=== PATIENT | female | born 1980 | race Two or more races ===

== ENCOUNTER 2017-11-05 13:50 | Inpatient (IN) | payer OTHER ==
[2017-11-05 15:08] VITALS: BMI 36.0
[2017-11-05 15:10] LABS: BASO % 0.4 % (0-2.0); EOS % 0.8 % (0-4.5); HEMATOCRIT 36.1 % (32.4-45.2); HEMOGLOBIN 12.8 GM/dL (10.7-15.3); LYMPH % 12.9 % (8-40); MCHC 35.4 g/dl (32.0-36.0); MEAN PLT VOLUME 8.6 fl (7.5-11.1); MONO % 5.4 % (3.8-10.2); NEUT % 80.5 % (42.8-82.8); PLATELET COUNT 188 K/MM3 (134-434); RBC 3.88 M/mm3 (3.60-5.2); RDW 13.5 % (11.6-15.6); WHITE BLOOD COUNT 8.9 K/mm3 (4.0-10.0)
[2017-11-05] MEDS ORDERED: TUBERCULIN PPD 5 TU/0.1ML SYRINGE (IN PATIENT USE ONLY) ID ONE (15:12)
[2017-11-05 15:34] LABS: INR 1.02 (0.82-1.09); PROTHROMBIN TIME (PATIENT) 11.5 SEC (9.98-11.88)
[2017-11-05 15:37] LABS: ACTIVATED PTT 23.4 SECONDS (26.9-34.4)
[2017-11-05 15:38] LABS: ANION GAP 9 (8-16); BLOOD UREA NITROGEN 8 mg/dL (7-18); CALCIUM 8.8 mg/dL (8.5-10.1); CHLORIDE 108 mmol/L (98-107); CO2 22 mmol/L (21-32); CREATININE 0.5 mg/dL (0.55-1.02); GLUCOSE,RANDOM 79 mg/dL (74-106); POTASSIUM 3.9 mmol/L (3.5-5.1); SODIUM 139 mmol/L (136-145)
[2017-11-05] MEDS ORDERED: DINOPROSTONE 10 MG VAGINAL SUPPOSITORY VG ONE (15:44)
[2017-11-05] MEDS ORDERED: BUTORPHANOL TARTRATE 1 MG/ML VIAL IVPUSH ONE (15:44)
[2017-11-05] MEDS ORDERED: PROMETHAZINE HCL 25 MG/1 ML VIAL IVPUSH ONE (15:44)
--- NOTE | 2017-11-05 16:03 | PN ---
Progress Note (short form) - Note Progress Note: cx 1 cm ,non effaced vx -3 ,fhr cat 1, no contraction , cervidil inserted
[2017-11-05] MEDS: DEXTROSE 5%-LACTATED RINGERS 1,000 ML IV SCH ×3 (16:50→23:43)
--- NOTE | 2017-11-05 17:43 | HP ---
Past Medical History - Primary Care Physician PCP:: Naman Clinton - Admission Chief Complaint: 39,4 weeks, ama, SGA, oligo History of Present Illness: 37 yo f g 4 p030 edc by sono 11/06 refereed for induction of labor due to oligo, SGA, , grade 3 placenta, cx 1 cm, non effaced vx -3. fhr cat 1, no contraction , risks of cervidil discussed with patient, ulternatives explained History Source: Patient Limitations to Obtaining History: No Limitations - Past Medical History ...: 4 ...Para: 0 ...Term: 0 ...: 0 ...Spon : 2 ...Induced : 1 ...Multiple Gestation: 0 ...LMP: 02/01/17 ... Weeks Gestation by Dates: 39.4 ...EDC by Dates: 11/08/17 ...EDC by Sono: 11/06/17 - Past Surgical History Hx Myomectomy: No Hx Transabdominal Cerclage: No - Smoking History Smoking history: Never smoked Have you smoked in the past 12 months: No - Alcohol/Substance Use Hx Alcohol Use: No - Social History Usual Living Arrangement: Yes: With Spouse History of Recent Travel: No Home Medications - Allergies Allergies/Adverse Reactions: Allergies Allergy/AdvReac Type Severity Reaction Status Date / Time cefuroxime [From Ceftin] Allergy Severe Swelling Verified 11/05/17 15:10 - Home Medications Home Medications: Ambulatory Orders Tablet 1 tab PO DAILY MDD 1 11/05/17 Review of Systems - Review of Systems Constitutional: reports: No Symptoms Eyes: reports: No Symptoms HENT: reports: No Symptoms Neck: reports: No Symptoms Cardiovascular: reports: No Symptoms Respiratory: reports: No Symptoms Gastrointestinal: reports: No Symptoms Genitourinary: reports: No Symptoms Breasts: reports: No Symptoms Reported Musculoskeletal: reports: No Symptoms Integumentary: reports: No Symptoms Neurological: reports: No Symptoms Endocrine: reports: No Symptoms Hematology/Lymphatic: reports: No Symptoms Psychiatric: reports: No Symptoms Physical Exam - Maternity Vital Signs: Vital Signs Temperature 98.6 F 11/05/17 17:00 Pulse Rate 76 11/05/17 17:00 Respiratory Rate 18 11/05/17 17:00 Blood Pressure 122/64 11/05/17 17:00 O2 Sat by Pulse Oximetry (%) Constitutional: Yes: Well Nourished, No Distress, Calm Eyes: Yes: WNL, Conjunctiva Clear, EOM Intact HENT: Yes: WNL, Atraumatic, Normocephalic Neck: Yes: WNL, Supple, Trachea Midline Cardiovascular: Yes: WNL, Regular Rate and Rhythm Breast(s): Yes: WNL - Abdominal Exam/OB Fundal Height: 38 Number of Fetuses: Single Presentation: Vertex Contractions: No Intensity: Unaware Monitor Mode: External Heart Rate Location: [facility] Category: I Accelerations: Uniform Decelerations: None - Vaginal Exam/OB Vaginal Bleediing: No Speculum Exam: No Dilatation (cm): 1 Effacement (%): 0 Amniotic Membrane Status: Intact Presentation: Vertex/Position Station: -3 - Physical Exam Musculoskeletal: Yes: WNL Extremities: Yes: WNL Edema: Yes Edema: LLE: Trace, RLE: Trace Deep Tendon Reflex Grade: Normal +2 ...Motor Strength: WNL Psychiatric: Yes: WNL - Labs Lab Results: CBC, BMP 11/05/17 14:49 11/05/17 14:49 Hemorrhage Risk Assessment - Risk Factors Medium Risk Factors: Yes: None High Risk Factors: Yes: None Risk Score: 1 Risk Level: Medium Risk Problem List - Problems (1) with 39 completed weeks gestation Code(s): Z3A.39 - 39 WEEKS GESTATION OF (2) Small for gestational age fetus Code(s): [id number] - (3) Oligohydramnios antepartum Code(s): O41.00X0 - OLIGOHYDRAMNIOS, UNSP TRIMESTER, NOT APPLICABLE OR UNSP Qualifiers: Fetus number: single or unspecified fetus Qualified Code(s): O41.00X0 - Oligohydramnios, unspecified trimester, not applicable or unspecified Assessment/Plan plan admit for cervidil induction, rba discussed , heart monitoring
[2017-11-06] MEDS ORDERED: LIDOCAINE HCL 1% PRESERVATIVE FREE - 30ML VIAL ONE (01:35)
[2017-11-06] MEDS ORDERED: OXYTOCIN 20 UNITS in 0.9% NS 20 UNIT/1,000 ML INFUS.BAG IV ONE (01:35)
[2017-11-06] MEDS ORDERED: BENZOCAINE 28 GM HEMORRHOIDAL OINTMENT TP PRN (02:10)
[2017-11-06] MEDS ORDERED: BISACODYL 10 MG SUPP.RECT RC PRN (02:10)
[2017-11-06] MEDS ORDERED: METHYLERGONOVINE MALEATE 0.2 MG/1 ML AMP IM PRN (02:10)
[2017-11-06] MEDS ORDERED: ACETAMINOPHEN 325 MG TABLET (FP) PO PRN (02:10)
[2017-11-06] MEDS ORDERED: IBUPROFEN 600 MG TABLET (FP) PO PRN (02:10)
[2017-11-06] MEDS ORDERED: oxyCODONE HCL 5 MG TABLET PO PRN (02:10)
[2017-11-06] MEDS ORDERED: WITCH HAZEL 50% (TUCKS) 40 PAD/JAR PAD TP PRN (02:10)
[2017-11-06] MEDS ORDERED: BENZOCAINE 20% 57 GM BOTTLE TP PRN (02:10)
[2017-11-06] MEDS ORDERED: OXYTOCIN 20 UNITS in 0.9% NS 20 UNIT/1,000 ML INFUS.BAG IV SCH (02:30)
[2017-11-06] MEDS: PRENATAL VITAMINS W/ FOLIC ACID TABLET (FP) PO SCH (10:05)
[2017-11-06] MEDS: FERROUS SO4 325 MG TABLET (FP) PO SCH ×2 (10:05→22:12)
[2017-11-07 08:30] LABS: BASO % 0.6 % (0-2.0); EOS % 1.3 % (0-4.5); HEMATOCRIT 33.3 % (32.4-45.2); HEMOGLOBIN 11.4 GM/dL (10.7-15.3); LYMPH % 22.4 % (8-40); MCH 32.2 pg (25.7-33.7); MCHC 34.3 g/dl (32.0-36.0); MEAN CELL VOLUME 93.8 fl (80-96); MEAN PLT VOLUME 8.3 fl (7.5-11.1); MONO % 6.1 % (3.8-10.2); NEUT % 69.6 % (42.8-82.8); PLATELET COUNT 195 K/MM3 (134-434); RBC 3.55 M/mm3 (3.60-5.2); RDW 13.7 % (11.6-15.6)
[2017-11-07] MEDS: PRENATAL VITAMINS W/ FOLIC ACID TABLET (FP) PO SCH (09:59)
[2017-11-07] MEDS: FERROUS SO4 325 MG TABLET (FP) PO SCH ×2 (09:59→21:25)
--- NOTE | 2017-11-07 12:28 | PN ---
Progress Note (short form) - Note Progress Note: ppd 1 doing well, no c/o ,voids ok, no excess vaginal bleeding CBC, BMP 11/07/17 07:45 11/05/17 14:49 Last Vital Signs Temp Pulse Resp BP Pulse Ox 99.0 F 88 20 137/74 11/07/17 10:00 11/07/17 10:00 11/07/17 10:00 11/07/17 10:00 abdomen soft, uterus firm, non tender lochia mild no calf tenderness plan ambulate , d/c home in am
[2017-11-07] MEDS ORDERED: SENNOSIDES/DOCUSATE COMBO (SENNA PLUS) TABLET (UD) PO PRN (22:00)
[2017-11-07 22:18] VITALS: TEMP 98.4
[2017-11-08 08:07] VITALS: BP 127/89; PULSE 82
--- NOTE | 2017-11-08 08:55 | DS ---
Physical Exam-CROZE CUTTER Vital Signs: Vital Signs Temperature 98.4 F 11/08/17 07:30 Pulse Rate 82 11/08/17 07:30 Respiratory Rate 20 11/08/17 07:30 Blood Pressure 127/89 11/08/17 07:30 O2 Sat by Pulse Oximetry (%) Constitutional: Yes: Well Nourished, No Distress, Calm Eyes: Yes: WNL, Conjunctiva Clear, EOM Intact HENT: Yes: WNL, Atraumatic, Normocephalic Neck: Yes: WNL, Supple, Trachea Midline Cardiovascular: Yes: WNL, Regular Rate and Rhythm Respiratory: Yes: WNL, Regular, CTA Bilaterally Gastrointestinal: Yes: WNL ...Rectal Exam: Yes: WNL Renal/: Yes: WNL Vaginal Exam: Yes: Normal ....Post : Yes: Uterus firm, Uterus non-tender, Slight lochia rubra Breast(s): Yes: WNL Musculoskeletal: Yes: WNL Extremities: Yes: WNL Edema: No Integumentary: Yes: WNL Neurological: Yes: WNL, Alert, Oriented ...Motor Strength: WNL Psychiatric: Yes: WNL, Alert, Oriented Labs: CBC, BMP 11/07/17 07:45 11/05/17 14:49 Delivery - Delivery Vaginal Delivery: Spontaneous (no complication) Type of Anesthesia: None Episiotomy/Laceration: None EBL (cc): 300 Delivery, Single - Stages of Labor Date 2nd Stage Initiated: 11/06/17 Time 2nd Stage Initiated: 01:40 Date of Delivery: 11/06/17 Time of Delivery: 01:55 Time Placenta Delivered: 02:00 Placenta: Yes: Spontaneous - Condition of Prototype Deicer Assembler/Nursery Hand Present: No Gender: Female Weight: 5 lb 2 oz Position: Left, OA Total Hours ROM (Hrs/Mins): 0130 - 1 Minute Total Score: 9 5 Minutes Total Score: 9 - [place] Feeding Plan Initial Plan: Elected not to breastfeed exclusively throughout hospitalization Discharge Summary Reason For Visit: INDUCTION OF LABOR Current Active Problems Oligohydramnios antepartum (Acute) with 39 completed weeks gestation (Acute) Small for gestational age fetus (Acute) Procedures: Principal: Condition: Good - Instructions Diet, Activity, Other Instructions: regular diet, no intercourse, follow up office 4 weeks Referrals: Naman Clinton MD [Staff Physician] - Disposition: HOME - Home Medications Comprehensive Discharge Medication List: Ambulatory Orders Tablet 1 tab PO DAILY MDD 1 11/05/17
[2017-11-08] MEDS: FERROUS SO4 325 MG TABLET (FP) PO SCH (09:01)
[2017-11-08] MEDS: PRENATAL VITAMINS W/ FOLIC ACID TABLET (FP) PO SCH (09:01)
== END 2017-11-08 12:45 | disposition home or self-care (01) | DRG 775 ==
LOC: JLDR 13:50 → J3W 11-06 03:27
PROVIDERS: ADMIT Obstetrics & Gynecology; ATTEND Obstetrics & Gynecology
PROC: 10E0XZZ Delivery of Products of Conception, External Approach (ICD-10-PCS; principal; 2017-11-06)
DX: O41.03X0 Oligohydramnios, third trimester, not applicable or unspecified (principal); O36.5930 Maternal care for other known or suspected poor fetal growth, third trimester, not applicable or unspecified; Z3A.39 39 weeks gestation of pregnancy; Z37.0 Single live birth
CPT/HCPCS: 36415; 59409; 80048; 85025; 85610; 85730; 86593; 86850; 86900; 86901; 87389

== ENCOUNTER 2018-02-08 05:04 | Day surgery (SDC) | payer OTHER ==
[2018-02-07 11:16] VITALS: BMI 32.5
[2018-02-08] MEDS ORDERED: ONDANSETRON 4 MG/2 ML VIAL IVPUSH PRN (13:18)
[2018-02-08] MEDS ORDERED: IBUPROFEN 600 MG TABLET (FP) PO PRN (13:18)
[2018-02-08] MEDS ORDERED: oxyCODONE HCL 5 MG TABLET PO PRN (13:18)
[2018-02-08] MEDS ORDERED: IBUPROFEN 800 MG/8 ML IJ IVPB PRN (13:18)
--- NOTE | 2018-02-08 13:18 | HP ---
History & Physical Update - History History: No Change - Physical Physical: No Change - Assessment Assessment: No Change - Plan Plan: No Change
[2018-02-08] MEDS ORDERED: PROPOFOL 20 ML ONE (13:24)
[2018-02-08] MEDS ORDERED: MIDAZOLAM HCL 2 MG/2 ML SINGLE DOSE VIAL ONE (13:24)
[2018-02-08] MEDS ORDERED: DEXAMETHASONE SOD PHOSPHATE 4 MG/1 ML VIAL ONE (13:25)
[2018-02-08] MEDS ORDERED: LIDOCAINE HCL/PF 2% SDV 5ML VIAL ONE (13:25)
[2018-02-08] MEDS ORDERED: KETOROLAC TROMETHAMINE 30 MG/1 ML VIAL ONE (13:25)
[2018-02-08] MEDS ORDERED: ELECTROLYTE-148 SOLN 1,000 ML IV SCH (15:15)
--- NOTE | 2018-02-08 15:41 | OP ---
Operative Note - Note: Operative Date: 02/08/18 Pre-Operative Diagnosis: 37yo P1 with abnormal bleeding, hyperplastic Endometrium Operation: Hysteroscopy, Multiple polyp polypectomy Findings: Numerous <10 Endometrial polyps Post-Operative Diagnosis: Same as Pre-op Surgeon: Autumn Hansen Anesthesiologist/ORACLE APPLICATIONS DEVELOPER: Ac Hua Anesthesia: MAC Specimens Removed: 1. Multiple Endometrial polyps. 2. Endometrial curettings Estimated Blood Loss (mls): 25 Instrument used (Debridements only): TruClear device Drains & Tubes with Location: Fluid deficit - 1100cc Drains, Volume Out (mls): 250 Fluid Volume Replaced (mls): 800 Operative Report Dictated: Yes
[2018-02-08 16:13] VITALS: TEMP 98.6
[2018-02-08 17:31] VITALS: BP 138/65; PULSE 72
--- NOTE | 2018-02-09 11:09 | OP ---
DATE OF OPERATION: 02/08/2018 PREOPERATIVE DIAGNOSIS: A 37-year-old, para 1 with abnormal uterine bleeding, hyperplastic endometrium on ultrasound. PROCEDURE: Hysteroscopy; multiple, more than 10 polyps, polypectomy; dilation and curettage. POSTOPERATIVE DIAGNOSIS: A 37-year-old, para 1 with abnormal uterine bleeding, hyperplastic endometrium on ultrasound. SURGEON: Autumn Hansen MD ANESTHESIOLOGIST: Ac Hua CRNA ANESTHESIA: MAC. SPECIMENS REMOVED: Multiple endometrial polyps and endometrial curettings. DESCRIPTION OF OPERATIVE PROCEDURE: After assuring informed consent, the patient was brought to the operating room where she was placed in dorsal lithotomy position. Perineum and vagina were prepped and draped in the sterile fashion. Single-toothed tenaculum was placed on the cervix, on the anterior cervical lip under direct visualization and gentle dilation with dilators was performed. A 5-mm hysteroscope was introduced after the site was balanced and primed. Multiple innumerable endometrial polyps were observed. The smallest resectoscope device was introduced through the hysteroscope trocar and circumferential resection of all of the polyps was started; however, due to significant fluid loss and worsened visualization, larger device was reassembled, which was a 10-mm hysteroscopic device, and reintroduced into the uterus and the rest of the resection was performed with the 10-mm hysteroscope. All of the polyps were visibly removed. Hysteroscope was removed from the uterus and sharp curettage with number 3 curette gently was performed and the uterus was found to be empty. Subsequently, all instruments and sponges were removed from the vagina and the uterus. Instrument and sponge counts were correct x2. Estimated blood loss was 25 mL. Patient had 250 mL of urine drained during the procedure and received 800 mL of IV fluids and the fluid deficit was 1100 mL. Patient tolerated the procedure well, was extubated, and brought to the recovery room in stable condition. Edgar PARKER/[id number]
--- NOTE | 2018-02-10 11:40 | PATH ---
Surgical Pathology Report Patient Name: COURTNEY PALENCIA [facility]. Rec. #: [id number] /Age/Gender: 1980 (Age: 37) / F Account: [id number] Location: [facility] SURGICAL Taken: 02/07/2018 Received: 02/09/2018 Reported: 02/10/2018 Physicians: Autumn Hansen M.D. Specimen(s) Received A: ENDOMETRIAL POLYP B: ENDOMETRIAL CURETTINGS Clinical History Excessive and frequent menstruation Final Diagnosis A. ENDOMETRIAL POLYP, EXCISION: FRAGMENTS OF ENDOMETRIAL POLYP. SEPARATE SECRETORY TYPE ENDOMETRIUM. SEPARATE ENDOCERVICAL TISSUE WITH MICROGLANDULAR HYPERPLASIA (BENIGN). B. ENDOMETRIAL CURETTINGS: SECRETORY TYPE ENDOMETRIUM. SEPARATE CERVICAL TISSUE WITH SQUAMOUS METAPLASIA. Electronically Signed Bettie Astorga M.D. Gross Description A. Received in formalin labeled "polyps," is a 4.0 x 2.8 x 0.3 cm aggregate of garcia soft tissue fragments. The specimen is entirely submitted in 2 cassettes. B. Received in formalin labeled "endometrial curettings," is a 2.3 x 1.7 x 0.3 cm aggregate of garcia-brown soft tissue fragments. The formalin is filtered and the specimen is entirely submitted in one cassette. 02/09/201802/09/2018
== END 2018-02-08 17:31 | disposition home or self-care (01) ==
LOC: JASU-SURG 05:04
PROVIDERS: ATTEND Obstetrics & Gynecology
PROC: 0UB98ZX Excision of Uterus, Via Natural or Artificial Opening Endoscopic, Diagnostic (ICD-10-PCS; principal; 2018-02-08 11:00)
PROC: 0UDB7ZX Extraction of Endometrium, Via Natural or Artificial Opening, Diagnostic (ICD-10-PCS; 2018-02-08 11:00)
DX: N93.9 Abnormal uterine and vaginal bleeding, unspecified (principal); N84.0 Polyp of corpus uteri
CPT/HCPCS: 84703; 88305-TC; 94760

== ENCOUNTER 2019-08-30 11:59 | Inpatient (IN) | payer BC, OTHER ==
[2019-08-30 12:08] VITALS: BMI 31.9
[2019-08-30] MEDS ORDERED: SODIUM CHLORIDE 0.9% 1000 ML INFUS.BAG IV ONE (12:50)
--- NOTE | 2019-08-30 13:24 | PDOC ---
Documentation entered by Jose L Dewey SCRIBE, acting as scribe for Yue Mejia MD. Yue Mejia MD: This documentation has been prepared by the Maco fuentes Nirvannie, SCRIBE, under my direction and personally reviewed by me in its entirety. I confirm that the documentation accurately reflects all work, treatment, procedures, and medical decision making performed by me. History of Present Illness - General Chief Complaint: Pain, Acute Stated Complaint: ECTOPIC Time Seen by Provider: 08/30/19 12:50 History Source: Patient Exam Limitations: No Limitations - History of Present Illness Initial Comments: 08/30/19 13:26 The patient is a 39 year old 5 weeks female A2, with a significant past medical history of ectopic , who presents to the emergency department with a known ectopic for surgical intervention. As per patient, she had two ultrasound studies (last week and this week) which depicted a known ectopic . Patient was advised by her PROGRAM OR PROJECT ADMINISTRATOR Autumn Ziegler MD to report to the ED for admission and surgery. Patient s last ectopic did not require surgical intervention. Patient notes minimal vaginal spotting. She denies recent fevers, chills, headache or dizziness. She denies recent nausea, vomit, diarrhea or constipation. She denies recent dysuria, frequency, urgency or hematuria. She denies recent chest pain or shortness of breath. Allergies: Cefuroxime. Past History - Past Medical History Allergies/Adverse Reactions: Allergies Allergy/AdvReac Type Severity Reaction Status Date / Time cefuroxime [From Ceftin] Allergy Severe Swelling Verified 08/30/19 13:13 Home Medications: Ambulatory Orders NK [No Known Home Medication] 08/30/19 Anemia: Yes Asthma: Yes Cancer: No Cardiac Disorders: No CVA: No COPD: No CHF: No Dementia: No Diabetes: No GI Disorders: No Disorders: No HTN: No Hypercholesterolemia: No Liver Disease: No Seizures: No Thyroid Disease: No - Surgical History Appendectomy: Yes (1995) - Psycho Social/Smoking Cessation Hx Smoking History: Never smoked Have you smoked in the past 12 months: No Hx Alcohol Use: No Drug/Substance Use Hx: No Substance Use Type: None Hx Substance Use Treatment: No Review of Systems - Review of Systems Able to Perform ROS?: Yes Comments:: 08/30/19 13:26 GENERAL/CONSTITUTIONAL: No fever or chills. No weakness. HEAD, EYES, EARS, NOSE AND THROAT: No change in vision. No ear pain or discharge. No sore throat. CARDIOVASCULAR: No chest pain or shortness of breath. RESPIRATORY: No cough, wheezing, or hemoptysis. GASTROINTESTINAL: No nausea, vomiting, diarrhea or constipation. GENITOURINARY: +Vaginal spotting. No dysuria, frequency, or change in urination. MUSCULOSKELETAL: No joint or muscle swelling or pain. No neck or back pain. SKIN: No rash NEUROLOGIC: No headache, vertigo, loss of consciousness, or change in strength/ sensation. ENDOCRINE: No increased thirst. No abnormal weight change. HEMATOLOGIC/LYMPHATIC: No anemia, easy bleeding, or history of blood clots. ALLERGIC/IMMUNOLOGIC: No hives or skin allergy. All Other Systems: Reviewed and Negative *Physical Exam - Vital Signs Last Vital Signs Temp Pulse Resp BP Pulse Ox 98.0 F 65 16 112/67 100 08/30/19 12:05 08/30/19 12:05 08/30/19 12:05 08/30/19 12:05 08/30/19 12:05 - Physical Exam 08/30/19 13:17 Awake alert no acute distress lungs are clear bilaterally heart is regular with any murmurs rubs or gallops abdomen is soft nontender skin is warm and dry pelvic exam deferred ED Treatment Course - LABORATORY CBC & Chemistry Diagram: 08/30/19 13:00 08/30/19 13:00 Medical Decision Making - Medical Decision Making 08/30/19 13:17 39-year-old female history of prior ectopic here today with a known ectopic from Dr. Rowan's office patient states she has been having light spotting minimal cramping has a history of previous ectopic on the right states that currently she was found to have an ectopic on the right side as well no nausea no vomiting has been taking prenatals which she stopped yesterday denies any other complaints last meal was yesterday evening Discharge - Discharge Information Problems reviewed: Yes Clinical Impression/Diagnosis: Ectopic - Admission Yes - Follow up/Referral Referrals: Ronal Jeffrey MD [Primary Care Provider] - - Patient Discharge Instructions - Post Discharge Activity
[2019-08-30] MEDS ORDERED: BUPIVACAINE HCL/PF 0.25% (2.5MG/ML) 10 ML VIAL ONE (13:29)
[2019-08-30] MEDS ORDERED: BENZOIN/ALOE VERA/STORAX/TOLU 58 ML BOTTLE ONE (13:29)
[2019-08-30 13:31] LABS: BASO % 0.7 % (0-2.0); EOS % 1.3 % (0-4.5); HEMATOCRIT 38.2 % (32.4-45.2); HEMOGLOBIN 12.9 GM/dL (10.7-15.3); LYMPH % 23.3 % (8-40); MCH 31.8 pg (25.7-33.7); MCHC 33.9 g/dl (32.0-36.0); MEAN CELL VOLUME 93.9 fl (80-96); MEAN PLT VOLUME 8.1 fl (7.5-11.1); MONO % 5.4 % (3.8-10.2); NEUT % 69.3 % (42.8-82.8); PLATELET COUNT 273 K/MM3 (134-434); RBC 4.07 M/mm3 (3.60-5.2); RDW 12.9 % (11.6-15.6); WHITE BLOOD COUNT 8.1 K/mm3 (4.0-10.0)
[2019-08-30 13:45] LABS: INR 1.15 (0.83-1.09); PROTHROMBIN TIME (PATIENT) 13.6 SEC (9.7-13.0)
[2019-08-30 13:48] LABS: ACTIVATED PTT 32.6 SECONDS (25.2-36.5)
[2019-08-30 14:05] LABS: ALBUMIN 3.9 g/dl (3.4-5.0); BILIRUBIN,TOTAL 0.6 mg/dL (0.2-1); BLOOD UREA NITROGEN 11.2 mg/dL (7-18); CALCIUM 8.5 mg/dL (8.5-10.1); CREATININE 0.7 mg/dL (0.55-1.3); POTASSIUM 4.3 mmol/L (3.5-5.1)
[2019-08-30] MEDS ORDERED: GENTAMICIN SO4 80 MG/2 ML VIAL ONE (15:58)
[2019-08-30] MEDS ORDERED: PROPOFOL 20 ML ONE ×2 (16:00)
[2019-08-30] MEDS ORDERED: MIDAZOLAM HCL 2 MG/2 ML SINGLE DOSE VIAL ONE (16:00)
[2019-08-30] MEDS ORDERED: fentaNYL CITRATE 250 MCG/5 ML VIAL ONE (16:00)
[2019-08-30] MEDS ORDERED: CLINDAMYCIN PHOSPHATE 600 MG/4 ML VIAL ONE (16:03)
[2019-08-30] MEDS ORDERED: IBUPROFEN 800 MG/8 ML IJ IVPB PRN (16:05)
[2019-08-30] MEDS ORDERED: ONDANSETRON 4 MG/2 ML VIAL IVPUSH PRN ×2 (16:05→16:19)
[2019-08-30] MEDS ORDERED: IBUPROFEN 600 MG TABLET (FP) PO PRN (16:05)
[2019-08-30] MEDS ORDERED: oxyCODONE HCL 5 MG TABLET PO PRN ×2 (16:05→16:19)
[2019-08-30] MEDS ORDERED: ROCURONIUM BROMIDE 50 MG/5 ML SYRINGE ONE (16:09)
[2019-08-30] MEDS ORDERED: CLINDAMYCIN 600 MG PREMIX BAG IVPB ONE (16:10)
[2019-08-30] MEDS ORDERED: ELECTROLYTE-148 SOLN 1,000 ML IV SCH (16:15)
[2019-08-30] MEDS ORDERED: PROMETHAZINE HCL 25 MG/1 ML VIAL IVPUSH PRN (16:19)
[2019-08-30] MEDS ORDERED: GENTAMICIN SO4 80 MG/2 ML VIAL IVPB ONE (16:21)
[2019-08-30] MEDS ORDERED: BUPIVACAINE HCL/PF 0.5% (5 MG/ML) 30 ML VIAL IJ ONE (17:05)
[2019-08-30] MEDS ORDERED: NEOSTIGMINE METHYLSULFATE 0.5 MG/ML - 10 ML MDV ONE (17:08)
--- NOTE | 2019-08-30 17:19 | HP ---
History & Physical Update - History History: No Change - Physical Physical: No Change - Assessment Assessment: No Change - Plan Plan: No Change (Consent signed and witnessed)
--- NOTE | 2019-08-30 17:24 | OP ---
Operative Note - Note: Operative Date: 08/30/19 Pre-Operative Diagnosis: 39yo with Right Tubal Operation: Laparoscopic Right salpingectomy Findings: ~ 10cc of dark blood in the abdomen Normal Left tube and both ovaries Post-Operative Diagnosis: Other (Ruptured Right tubal ) Surgeon: Autumn Hansen Certified Medicine Aide: Niels Fay Anesthesiologist/MIXER DRIVER: Vishal Stiles Anesthesia: General Estimated Blood Loss (mls): 10 Drains, Volume Out (mls): 200 Fluid Volume Replaced (mls): 800 Operative Report Dictated: Yes
[2019-08-30] MEDS ORDERED: IBUPROFEN 800 MG/8 ML IJ IVPB ONE (17:58)
[2019-08-30] MEDS ORDERED: oxyCODONE HCL 5 MG TABLET ONE (19:12)
[2019-08-30 20:04] VITALS: TEMP 97.3
[2019-08-30] MEDS ORDERED: ONDANSETRON *ODT* 4 MG TABLET SL ONE (20:05)
[2019-08-30] MEDS ORDERED: ONDANSETRON 4 MG TABLET PO ONE (20:12)
[2019-08-30 20:23] VITALS: BP 113/80; PULSE 82
--- NOTE | 2019-08-31 13:08 | OP ---
DATE OF OPERATION: 08/30/2019 PREOPERATIVE DIAGNOSIS: A 39-year-old, para 1, with recurrent right tubal . OPERATION: Laparoscopic right salpingectomy. FINDINGS: Approximately 10 mL of dark blood in the abdomen. Normal left tube and both ovaries. POSTOPERATIVE DIAGNOSIS: Ruptured right tubal . SURGEON: Lizeth Hansen MD CHARTER AND TOUR BUS DRIVER: Niels Fay MD ANESTHESIOLOGIST: Vishal Stiles MD ANESTHESIA: General. DESCRIPTION OF THE OPERATIVE PROCEDURE: After assuring informed consent, patient was brought to the operating room where she was placed in dorsal lithotomy position. Abdomen and perineum were prepped and draped in sterile fashion. A Salvador was placed under sterile conditions, after timeout was completed. The Bland retractors were placed into the vagina. Cervix was articulated with single-tooth tenaculum, and gradually dilated to allow a HUMI dilator into the cervical canal, which was placed atraumatically, and balloon insufflated. Subsequently, the attention was brought to the abdomen. The laparoscope was assembled . The towel clips were placed periumbilically to be able to tent the umbilicus. The No. 15 blade was used to create a 5-mm infraumbilical incision. Veress needle was placed without any difficulty and proper placement was assured with normal saline test. Subsequently, abdomen was insufflated with approximately 2 L of CO2 gas. The Optiview laparoscope was used to access entry into the abdominal cavity. Abdominal cavity was surveyed and was found to contain approximately 10 mL of dark blood in the posterior cul-de-sac. The right fallopian tube was found to be disfigured, , and edematous, containing ectopic . Subsequently, two more trocars were placed in the lateral quadrants right and left. The fimbriated end of the right fallopian tube was grasped and LigaSure was utilized to dissect the right fallopian tube off the mesosalpinx with excellent hemostasis. The cornual edge of the fallopian tube was cauterized to seal the cornua and the uterine. The tube was placed into the anterior cul-de-sac. The 5-mm left lower quadrant trocar was exchanged for the 11-mm left lower quadrant trocar. The Endo Catch bag was introduced through that trocar and right fallopian tube was gathered into that Endo Catch bag and removed from the abdomen without any difficulty. Abdomen was copiously irrigated. The upper abdomen was found to be free of adhesions and was irrigated, as well. All blood was suctioned off the pelvis proper. Gas was allowed to escape the abdomen. All trocars were removed under direct visualization, after the laparoscopic suturing device was used to close the 11-mm left lower quadrant fascial defect. The skin was closed with 4-0 Monocryl of all three puncture incisions. Diluted solution of Marcaine was injected into each of the incisions. They were covered with Dermabond and OpSite. Subsequently, uterine manipulator and Salvador were removed from the cervix and the urethra. Excellent hemostasis was noted throughout. Sponge and instrument count was correct x2. Patient was brought to the recovery room in stable condition. LIZETH HANSEN M.D. [id number]
--- NOTE | 2019-09-01 19:15 | PATH ---
Surgical Pathology Report Patient Name: COURTNEY ROBBINS [facility]. Rec. #: [id number] /Age/Gender: 1980 (Age: 39) / F Account: [id number] Location: EMERGENCY ROOM Taken: 08/30/2019 Received: 08/31/2019 Reported: 09/01/2019 Physicians: Autumn Hansen M.D. Specimen(s) Received RIGHT ECTOPIC PRODUCTS OF CONCEPTION Clinical History Right ectopic Final Diagnosis RIGHT ECTOPIC , PRODUCTS OF CONCEPTION, SALPINGECTOMY: PORTION OF FALLOPIAN TUBE WITH CHORIONIC VILLI, CONSISTENT WITH ECTOPIC (TUBAL) . Electronically Signed Bettie Astorga M.D. Gross Description Received in formalin labeled "right ectopic , products of conception," is a 6.5 cm in length focally dilated, fimbriated fallopian tube. The outer surface is logan purple and smooth. Sectioning reveals focal red-brown blood clot within the lumen. Separately received within the same container is a 2.8 x 2.1 x 0.6 cm aggregate of red-brown soft tissue fragments and blood clot. Water Softener Service Supervisor sections are submitted in 4 cassettes as follows: 1-2-cross sections of fallopian tube; 3-separately received soft tissue fragments; 4-fimbria. 08/31/2019 [facility]08/31/2019
== END 2019-08-30 20:28 | disposition home or self-care (01) | DRG 819 ==
LOC: JER 11:59 → JERBED 15:34
PROVIDERS: ADMIT Obstetrics & Gynecology; ATTEND Obstetrics & Gynecology
PROC: 10T24ZZ Resection of Products of Conception, Ectopic, Percutaneous Endoscopic Approach (ICD-10-PCS; 2019-08-30)
PROC: 0UB54ZZ Excision of Right Fallopian Tube, Percutaneous Endoscopic Approach (ICD-10-PCS; principal; 2019-08-30 15:30)
DX: O00.101 Right tubal pregnancy without intrauterine pregnancy (principal)
CPT/HCPCS: 36415; 80053; 85025; 85610; 85730; 86850; 86900; 86901; 88305-TC; 94760; 99285-25; J7030

== ENCOUNTER 2021-03-20 12:06 | Inpatient (IN) | payer BC, OTHER ==
[2021-03-20 12:21] VITALS: BMI 32.2
[2021-03-20] MEDS ORDERED: ACETAMINOPHEN 1000 MG/100 ML VIAL (NON FORMULARY) IVPB ONE ×2 (13:23→20:49)
[2021-03-20] MEDS ORDERED: ONDANSETRON 4 MG/2 ML VIAL IVPUSH ONE (13:24)
[2021-03-20] MEDS ORDERED: ONDANSETRON 4 MG/2 ML VIAL ONE (14:10)
[2021-03-20] MEDS ORDERED: ACETAMINOPHEN INJECTION 100 ML IVPB ONE ×2 (14:10→20:58)
[2021-03-20 15:10] LABS: BASO % 0.3 % (0-2.0); EOS % 0.1 % (0-4.5); HEMATOCRIT 33.3 % (32.4-45.2); HEMOGLOBIN 11.4 GM/dL (10.7-15.3); LYMPH % 7.7 % (8-40); MCH 32.2 pg (25.7-33.7); MCHC 34.1 g/dl (32.0-36.0); MEAN CELL VOLUME 94.5 fl (80-96); MEAN PLT VOLUME 7.6 fl (7.5-11.1); MONO % 2.5 % (3.8-10.2); NEUT % 89.4 % (42.8-82.8); PLATELET COUNT 268 10^3/uL (134-434); RBC 3.52 M/mm3 (3.60-5.2); RDW 12.9 % (11.6-15.6); WHITE BLOOD COUNT 15.7 K/mm3 (4.0-10.0)
[2021-03-20 15:17] LABS: INR 1.16 (0.83-1.09); PROTHROMBIN TIME (PATIENT) 14.2 SEC (9.7-13.0)
[2021-03-20 15:19] LABS: ACTIVATED PTT 23.9 SECONDS (25.2-36.5)
[2021-03-20 15:31] LABS: BLOOD UREA NITROGEN 9.8 mg/dL (7-18)
[2021-03-20 15:35] LABS: BILIRUBIN,TOTAL 0.8 mg/dL (0.2-1); TOT PROT 6.4 g/dl (6.4-8.2)
[2021-03-20 15:47] LABS: ALBUMIN 3.4 g/dl (3.4-5.0); CREATININE 0.6 mg/dL (0.55-1.3)
[2021-03-20] MEDS ORDERED: SODIUM CHLORIDE 0.9% 500 ML INFUS.BAG IV ONE (16:49)
[2021-03-20] MEDS ORDERED: ONDANSETRON 4 MG/2 ML VIAL IVPUSH PRN ×2 (17:17→20:45)
[2021-03-20] MEDS ORDERED: PROMETHAZINE HCL 25 MG/1 ML VIAL IVPUSH PRN (17:17)
[2021-03-20] MEDS ORDERED: LACTATED RINGERS SOLUTION 1,000 ML IV SCH (17:30)
[2021-03-20] MEDS ORDERED: PROPOFOL 20 ML ONE (18:19)
[2021-03-20] MEDS ORDERED: MIDAZOLAM HCL 2 MG/2 ML SINGLE DOSE VIAL ONE (18:19)
[2021-03-20] MEDS ORDERED: ROCURONIUM BROMIDE 50 MG/5 ML SYRINGE ONE (18:19)
[2021-03-20] MEDS ORDERED: SODIUM CHLORIDE 0.9% P/F 10 ML VIAL IJ ONE (18:21)
[2021-03-20] MEDS ORDERED: ceFAZolin SODIUM 1 GM VIAL ONE (18:21)
[2021-03-20] MEDS ORDERED: ceFAZolin 2 GRAM PREMIX BAG IVPB ONE (19:05)
[2021-03-20] MEDS ORDERED: DEXAMETHASONE SOD PHOSPHATE 4 MG/1 ML VIAL ONE (19:44)
[2021-03-20] MEDS ORDERED: KETOROLAC TROMETHAMINE 30 MG/1 ML VIAL ONE (19:58)
[2021-03-20] MEDS ORDERED: GLYCOPYRROLATE 0.2 MG/1 ML VIAL ONE (20:05)
[2021-03-20] MEDS ORDERED: DOXYCYCLINE HYCLATE 100 MG VIAL IVPB ONE (20:07)
[2021-03-20] MEDS ORDERED: NEOSTIGMINE METHYLSULFATE 0.5 MG/ML - 10 ML MDV ONE (20:17)
[2021-03-20] MEDS ORDERED: BUPIVACAINE HCL/PF 0.5% (5MG/ML) 10 ML VIAL ONE (20:19)
[2021-03-20] MEDS ORDERED: IBUPROFEN 800 MG/8 ML IJ IVPB PRN (20:45)
[2021-03-20] MEDS ORDERED: IBUPROFEN 600 MG TABLET (FP) PO PRN (20:45)
[2021-03-20] MEDS ORDERED: ACYCLOVIR 1000 MG (50MG/ML) VIAL IVPB ONE (20:45)
[2021-03-20] MEDS ORDERED: ACYCLOVIR INJECTION 800 MG in DEXTROSE 5%-WATER - 250 ML IVPB ONE (21:00)
[2021-03-20 21:15] LABS: HEMATOCRIT 30.8 % (32.4-45.2); HEMOGLOBIN 10.7 GM/dL (10.7-15.3); MCH 32.3 pg (25.7-33.7); MCHC 34.7 g/dl (32.0-36.0); MEAN CELL VOLUME 93.2 fl (80-96); MEAN PLT VOLUME 7.9 fl (7.5-11.1); PLATELET COUNT 207 10^3/uL (134-434); RBC 3.31 M/mm3 (3.60-5.2); RDW 12.9 % (11.6-15.6); WHITE BLOOD COUNT 15.9 K/mm3 (4.0-10.0)
[2021-03-20 22:27] VITALS: BP 107/56; PULSE 88
[2021-03-20 22:28] VITALS: TEMP 97
== END 2021-03-21 00:10 | disposition home or self-care (01) | DRG 819 ==
LOC: JER 12:06 → JERBED 16:35 → J3W 22:42
PROVIDERS: ADMIT Obstetrics & Gynecology; ATTEND Obstetrics & Gynecology
PROC: 0UT64ZZ Resection of Left Fallopian Tube, Percutaneous Endoscopic Approach (ICD-10-PCS; 2021-03-20)
PROC: 10D24ZZ Extraction of Products of Conception, Ectopic, Percutaneous Endoscopic Approach (ICD-10-PCS; principal; 2021-03-20 18:20)
DX: O00.102 Left tubal pregnancy without intrauterine pregnancy (principal); O46.8X1 Other antepartum hemorrhage, first trimester; Z3A.01 Less than 8 weeks gestation of pregnancy
CPT/HCPCS: 36415; 76817-TC; 80053; 84702; 85025; 85027; 85610; 85730; 86850; 86900; 86901; 86922; 93005; 93010; 94760; 99285-25; C9803; J0131; U0003; U0005